=== PATIENT | female | born 1985 | race Caucasian/White ===

== ENCOUNTER 2016-12-01 12:19 | Emergency (ER) | payer MEDICAID ==
[2016-12-01 12:27] VITALS: RESP 18
[2016-12-01] MEDS ORDERED: PHENAZOPYRIDINE HCL 200 MG TAB PO ONE (12:40)
[2016-12-01] MEDS ORDERED: ONDANSETRON 4 MG/2 ML VIAL IVP ONE (12:47)
[2016-12-01] MEDS ORDERED: fentaNYL 100 MCG/2 ML INJ IVP ONE (12:47)
[2016-12-01 12:53] LABS: COLOR YELLOW; LEUKOCYTE ESTERASE,URINE 3+ (NEGATIVE); NITRITE,URINE NEGATIVE (NEGATIVE)
[2016-12-01 13:07] LABS: BACTERIA 1+ /hpf (NONE SEEN); MUCUS TRACE /lpf (NONE-1+); RBC,URINE 50-182 /hpf (0-3); WBC,URINE 50-182 /hpf (0-3)
[2016-12-01] MEDS ORDERED: HYDROmorphONE/DILAUDID 1 MG/ML SYR IVP ONE (13:28)
--- NOTE | 2016-12-01 14:14 | EDPHY ---
H & P Smoking Status: Current every day smoker Time Seen by Provider: 12/01/16 12:31 HPI/ROS: CHIEF COMPLAINT: Dysuria, abdominal pain, flank pain HISTORY OF PRESENT ILLNESS: 31-year-old female presents to the emergency department complaining of dysuria over last 3 or 4 days. She has noticed some urinary frequency as well. Today she noted hematuria. This morning she developed left severe flank pain. Denies radicular symptoms. Denies symptoms in the right low back. She feels nauseous although no vomiting. No diarrhea. No reported fever. No reported trauma. Last menstrual period was over 1 year ago since she is on continuous control and she denies . REVIEW OF SYSTEMS: Constitutional: No fever, no chills. Eyes: No double or blurry vision. ENT: No sore throat. Respiratory: No cough, no shortness of breath. Cardiac: No chest pain. Gastrointestinal: Abdominal and flank pain as above. No vomiting or diarrhea. Genitourinary: Dysuria, frequency with urination. Musculoskeletal: No neck or back pain. Skin: No rashes. Neurological: No headache. (Christy Foley) Past Medical/Surgical History: Last urinary tract infection 6 years ago. (Christy Foley) Social History: Single (Christy Foley) Physical Exam: General Appearance: Alert, no distress.121/77, 36.4 temp Eyes: Pupils equal and round. Extraocular motions are all intact. ENT: Mouth: Mucous membranes moist. Respiratory: No wheezing, rhonchi, or rales, lungs are clear to auscultation. Cardiovascular: Regular rate and rhythm. Gastrointestinal: Abdomen is soft and nontender, no masses, no rebound or guarding, bowel sounds normal. Positive CVA tenderness on the left, none on the right. Neurological: Alert and oriented x 3, cranial nerves II through XII grossly intact Skin: Warm and dry, no rashes. Musculoskeletal: Nontender to palpate along the cervical, thoracic or lumbar spine. Neck is supple. Extremities: Full range of motion and no peripheral edema. Psychiatric: Patient is oriented X 3, there is no agitation. (Christy Foley) Constitutional: Initial Vital Signs Temperature (C) 36.9 C 12/01/16 12:24 Heart Rate 88 12/01/16 12:24 Respiratory Rate 18 12/01/16 12:24 Blood Pressure 121/77 H 12/01/16 12:24 O2 Sat (%) 98 12/01/16 12:24 O2 Delivery Mode Room Air Allergies/Adverse Reactions: No Known Allergies Allergy (Verified 12/02/14 09:02) Home Medications: Medication Instructions Recorded Hydrocodone/APAP 5/325 [[place] 1 each PO Q4-6PRN PRN #14 tab 03/25/14 5/325 (*)] Albuterol [Proventil Inhaler HFA 2 puffs IH Q4 PRN #1 mdi 12/02/14 (*)] Benzonatate [Tessalon Pearles] 200 mg PO BID PRN #20 cap 12/02/14 Codeine/Promethazine [Phenergan W/ 5 ml PO Q4-6PRN PRN #120 ml 12/02/14 Codeine Syrup] Norethindrone-E.estradiol-Iron 1 each PO 12/02/14 [Microgestin Fe 1-20 Tablet] oxyCODONE/APAP 5/325 [Percocet 1 tab PO Q4-6PRN PRN #10 tab 02/25/15 5/325 (*)] Hydrocodone/APAP 5/325 [[place] 1 - 2 tab PO Q4H PRN #10 tab 09/16/16 5/325] Cephalexin [Keflex] 500 mg PO QID #40 cap 12/01/16 Hydrocodone/APAP 5/325 [[place] 1 each PO Q4-6PRN PRN #11 tab 12/01/16 5/325 (*)] Phenazopyridine HCl [Pyridium] 200 mg PO Q8PRN PRN #6 tab 12/01/16 Medical Decision Making - Diagnostics Imaging: CT imaging of the abdomen and pelvis without contrast reveals no evidence of hydronephrosis. No evidence of kidney stone. Normal appendix. This was reported to me by Dr. Coley at 1:41 p.m.. (Christy Foley) ED Course/Re-evaluation: 31-year-old female presents with severe left flank pain and dysuria and hematuria. I explained to the patient that I was very concerned that she could possibly have a concurrent kidney stone. I discussed the pros and cons of radiation exposure associated with CT scan the patient agrees with CT scan to rule out kidney stone. CT scan reveals no evidence of kidney stone or hydronephrosis. Normal appearing appendix. Urinalysis reveals large amount of red blood cells and white blood cells. Urine culture is pending. The patient was given 1 g of IV Rocephin in the emergency department. Patient will call for urine culture results in 48 hours. She will be discharged home with Keflex. I do not think she needs admission to the hospital. She was encouraged to return to the emergency department if she developed fever, vomiting or if she felt worse in any way. (Christy Foley) I did not see this patient while she was in the emergency department. However her care was discussed with the PA while the patient was in the department. I agree with treatment plan and management (Nick Austin) Differential Diagnosis: Including but not limited to urinary tract infection, pyelonephritis, kidney stone, acute appendicitis (Christy Foley) - Data Points Laboratory Results: 12/01/16 12/01/16 12:30 12:30 Urine Color YELLOW Urine Appearance TURBID Urine pH 6.0 (5.0-7.5) Ur Specific Joaquin 1.021 (1.002-1.030) Urine Protein 1+ H (NEGATIVE) Urine Ketones NEGATIVE (NEGATIVE) Urine Blood 3+ H (NEGATIVE) Urine Nitrate NEGATIVE (NEGATIVE) Urine Bilirubin NEGATIVE (NEGATIVE) Urine Urobilinogen NEGATIVE EU EU (0.2-1.0) Ur Leukocyte Esterase 3+ H (NEGATIVE) Urine RBC 50-182 /hpf H /hpf (0-3) Urine WBC 50-182 /hpf H /hpf (0-3) Ur Epithelial Cells TRACE /lpf /lpf (NONE-1+) Urine Bacteria 1+ /hpf H /hpf (NONE SEEN) Urine Mucus TRACE /lpf /lpf (NONE-1+) Ur Culture Indicated? INDICATED H (NI) Urine Glucose NEGATIVE (NEGATIVE) Urine Test NEGATIVE Medications Given: Discontinued Medications Fentanyl (Sublimaze) 50 mcg IVP EDNOW ONE Stop: 12/01/16 12:48 Last Admin: 12/01/16 12:55 Dose: 50 mcg Hydromorphone HCl (Dilaudid) 0.5 mg IVP EDNOW ONE Stop: 12/01/16 13:29 Last Admin: 12/01/16 13:34 Dose: 0.5 mg Ceftriaxone Sodium/Dextrose (Rocephin 1 Gm (Premix)) 50 mls @ 100 mls/hr IV EDNOW ONE PRN Reason: Protocol Stop: 12/01/16 14:14 Last Admin: 12/01/16 14:03 Dose: 50 mls Ondansetron HCl (Zofran) 4 mg IVP EDNOW ONE Stop: 12/01/16 12:48 Last Admin: 12/01/16 12:55 Dose: 4 mg Phenazopyridine HCl (Pyridium) 200 mg PO EDNOW ONE Stop: 12/01/16 12:41 Last Admin: 12/01/16 12:45 Dose: 200 mg Departure - Departure Disposition: Home, Routine, Self-Care Clinical Impression: Acute pyelonephritis Condition: Good Instructions: Urinary Tract Infection in Women (ED), Kidney Infection (ED) Additional Instructions: Keflex 500 mg 4 times daily for 10 days. Pyridium as needed for burning with urination. Return if you develop fever, vomiting, worsening back pain, or if you feel worse in any way. Referrals: Mayra Robertson MD [Medical Doctor] - 1 day, if not improved Prescriptions: Cephalexin [Keflex] 500 mg PO QID #40 cap Hydrocodone/APAP 5/325 [[place] 5/325 (*)] 1 each PO Q4-6PRN PRN #11 tab PRN Reason: Pain, Severe Phenazopyridine HCl [Pyridium] 200 mg PO Q8PRN PRN #6 tab PRN Reason: P.r.n. dysuria
[2016-12-01 14:46] VITALS: BP 99/64; PULSE 61; TEMP 98.4; O2SAT 95
== END 2016-12-01 14:58 | disposition home or self-care (01) ==
DX: N10 Acute pyelonephritis (principal)
CPT/HCPCS: 96365; J0696; J1170; J2405; J3010

== ENCOUNTER 2017-02-18 16:43 | Emergency (ER) | payer MEDICAID ==
[2017-02-18] MEDS ORDERED: KETOROLAC 30 MG/1 ML SDV IM ONE (17:10)
[2017-02-18] MEDS ORDERED: LORazepam 1 MG TAB PO ONE (17:10)
--- NOTE | 2017-02-18 18:23 | EDPHY ---
H & P Stated Complaint: back pain Time Seen by Provider: 02/18/17 17:01 HPI/ROS: CHIEF COMPLAINT: Back strain HISTORY OF PRESENT ILLNESS: The patient presents to the ED with complaints of an acute right trapezius muscle sprain that began earlier today. The patient woke up with tightness and limited range of motion in her neck secondary to the pain. She denies recent fall or trauma. Patient has no complaints of fever, history of IV drug use, numbness, weakness or history of spinal injury. Patient did use a anti-inflammatory earlier today without improvement of her symptoms. The patient denies any bowel or bladder dysfunction. She has no lower extremity complaints or upper extremity complaints. REVIEW OF SYSTEMS: A comprehensive 10 point review of systems is otherwise negative aside from elements mentioned in the history of present illness. Source: Patient Exam Limitations: No limitations - Personal History LMP (Females 10-55): Irregular Current Tetanus/Diphtheria Vaccine: No Current Tetanus Diphtheria and Acellular Pertussis (TDAP): No - Medical/Surgical History Hx Asthma: No Hx Chronic Respiratory Disease: No Hx Diabetes: No Hx Cardiac Disease: No Hx Renal Disease: No Hx Cirrhosis: No Hx Alcoholism: No Hx HIV/AIDS: No Hx Splenectomy or Spleen Trauma: No Other PMH: PMH- POLYCYSTIC OVARY DISEASE. PSH- CYST REMOVAL FROM both OVARIES - Social History Smoking Status: Current every day smoker - Physical Exam Exam: General Appearance: Alert, no distress Eyes: Pupils equal and round no pallor or injection Neck: Tenderness to palpation noted in the right trapezius muscle consistent with myofascial strain ENT, Mouth: Mucous membranes moist Respiratory: There are no retractions, lungs are clear to auscultation Cardiovascular: Regular rate and rhythm Gastrointestinal: Abdomen is soft and nontender, no masses, bowel sounds normal Neurological: A&O, normal motor function, normal sensory exam, normal cranial nerves Skin: Warm and dry, no rashes Musculoskeletal: Neck is supple nontender Extremities: symmetrical, full range of motion Psychiatric: Patient is oriented X 3, there is no agitation Constitutional: Initial Vital Signs Temperature (C) 36.8 C 02/18/17 16:45 Heart Rate 84 02/18/17 16:45 Respiratory Rate 18 02/18/17 16:45 O2 Sat (%) 96 02/18/17 16:45 O2 Delivery Mode Room Air Allergies/Adverse Reactions: No Known Allergies Allergy (Verified 12/02/14 09:02) Medical Decision Making ED Course/Re-evaluation: The patient presents to the ED with myofascial strain involving her right trapezius muscle. The patient received 30 mg dose of intramuscular Toradol and also was given 1 mg of oral Ativan. The patient is noted to be neurologically intact. There is nothing to suggest an acute neurologic deficit or evidence of spinal cord compromise. The patient will be discharged home with customary aftercare instructions. She is given a prescription for Ativan and advised to take a 600 mg dose of ibuprofen. The patient is discharged home with customary aftercare instructions and return precautions. Differential Diagnosis: Differential diagnosis considered includes myofascial strain, cervical disc herniation, zoster - Data Points Medications Given: Discontinued Medications Ketorolac Tromethamine (Toradol) 30 mg IM EDNOW ONE Stop: 02/18/17 17:11 Last Admin: 02/18/17 17:19 Dose: 30 mg Lorazepam (Ativan) 1 mg PO EDNOW ONE Stop: 02/18/17 17:11 Last Admin: 02/18/17 17:20 Dose: 1 mg Departure - Departure Disposition: Home, Routine, Self-Care Clinical Impression: Trapezius strain Condition: Good Instructions: Musculoskeletal Pain (ED) Additional Instructions: 1. Take Ibuprofen or Motrin 600 mg by mouth three times a day. 2. Ativan as needed for muscle relaxation. 3. Please return to the fever, markedly worsening pain or other concerns.
[2017-02-18] MEDS ORDERED: LORAZEPAM 1 MG PREPACK#4 BTL TAKEHOME ONE ×2 (18:41→18:48)
[2017-02-18 18:48] VITALS: BP 121/67; PULSE 81; RESP 16; TEMP 98.1; O2SAT 97
== END 2017-02-18 18:47 | disposition home or self-care (01) ==
DX: S46.911A Strain of unspecified muscle, fascia and tendon at shoulder and upper arm level, right arm, initial encounter (principal); F17.200 Nicotine dependence, unspecified, uncomplicated; X58.XXXA Exposure to other specified factors, initial encounter
CPT/HCPCS: J1885

== ENCOUNTER 2017-04-01 12:06 | Emergency (ER) | payer MEDICAID ==
[2017-04-01 12:15] VITALS: RESP 18; O2SAT 94
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
[2017-04-01 14:01] VITALS: BP 116/91; PULSE 92; TEMP 98.2
== END 2017-04-01 14:00 | disposition home or self-care (01) ==
DX: S89.91XA Unspecified injury of right lower leg, initial encounter (principal); S60.221A Contusion of right hand, initial encounter; F17.200 Nicotine dependence, unspecified, uncomplicated; W01.198A Fall on same level from slipping, tripping and stumbling with subsequent striking against other object, initial encounter; Y93.02 Activity, running

== ENCOUNTER 2017-06-13 03:35 | Emergency (ER) | payer MEDICAID ==
[2017-06-13 03:41] VITALS: TEMP 99; O2SAT 94
--- NOTE | 2017-06-13 04:03 | EDPHY ---
H & P Stated Complaint: cut on L hand Time Seen by Provider: 06/13/17 03:56 HPI/ROS: CHIEF COMPLAINT: Laceration HISTORY OF PRESENT ILLNESS: The patient is a 32-year-old female who comes to the emergency department complaining of a laceration to her left hand. She fell and hit it on the cement. She has a very small puncture type wound to the palm of her left hand. She also has some bruising to her right hand but is not worried about it. She states that she had been drinking. She denies head neck or back injury. REVIEW OF SYSTEMS: Constitutional: denies: chills, fever, recent illness, recent injury EENTM: denies: blurred vision, double vision, nose congestion Respiratory: denies: cough, shortness of breath Cardiac: denies: chest pain, irregular heart rate, lightheadedness, palpitations Gastrointestinal/Abdominal: denies: abdominal pain, diarrhea, nausea, vomiting, blood streaked stools Genitourinary: denies: dysuria, frequency, hematuria, pain Musculoskeletal: See HPI Skin: denies: lesions, rash, jaundice, bruising Neurological: denies: headache, numbness, paresthesia, tingling, dizziness, weakness Hematologic/Lymphatic: denies: blood clots, easy bleeding, easy bruising Immunologic/allergic: denies: HIV/AIDS, transplant EXAM: GENERAL: Well-appearing, well-nourished and in no acute distress. HEAD: Atraumatic, normocephalic. EYES: Pupils equal round and reactive to light, extraocular movements intact, sclera anicteric, conjunctiva are normal. ENT: TMs normal, nares patent, oropharynx clear without exudates. Moist mucous membranes. NECK: Normal range of motion, supple without lymphadenopathy or JVD. LUNGS: Breath sounds clear to auscultation bilaterally and equal. No wheezes rales or rhonchi. HEART: Regular rate and rhythm without murmurs, rubs or gallops. ABDOMEN: Soft, nontender, normoactive bowel sounds. No guarding, no rebound. No masses appreciated. BACK: No CVA tenderness, no spinal tenderness, step-offs or deformities EXTREMITIES: Normal range of motion, no pitting or edema. No clubbing or cyanosis. NEUROLOGICAL: Cranial nerves II through XII grossly intact. Normal speech, normal gait. 5/5 strength, normal movement in all extremities, normal sensation PSYCH: Normal mood, normal affect. SKIN: See diagram Source: Patient Exam Limitations: No limitations - Personal History LMP (Females 10-55): Over 28 Days Ago Current Tetanus/Diphtheria Vaccine: Yes - Medical/Surgical History Hx Asthma: No Hx Chronic Respiratory Disease: No Hx Diabetes: No Hx Cardiac Disease: No Hx Renal Disease: No Hx Cirrhosis: No Hx Alcoholism: No Hx HIV/AIDS: No Hx Splenectomy or Spleen Trauma: No Other PMH: PMH- POLYCYSTIC OVARY DISEASE. PSH- CYST REMOVAL FROM both OVARIES - Family History Significant Family History: No pertinent family hx - Social History Smoking Status: Current every day smoker Alcohol Use: Occasionally Drug Use: None Constitutional: Initial Vital Signs Temperature (C) 37.2 C 06/13/17 03:38 Heart Rate 79 06/13/17 03:38 Respiratory Rate 14 06/13/17 03:38 Blood Pressure 108/63 06/13/17 03:38 O2 Sat (%) 94 06/13/17 03:38 O2 Delivery Mode Room Air Allergies/Adverse Reactions: No Known Allergies Allergy (Verified 04/01/17 12:11) Home Medications: Medication Instructions Recorded Microgestin 06/13/17 ED Images - Extremities Hands Back Left/Right: 1 - Bruising. No tenderness. Declines x-ray imaging Hands Front Left/Right: 1 - 0.5 cm laceration. Fatty tissue preventing closure. No visible foreign body. Normal range of motion. Normal sensation distally. Normal capillary refill. No sign of tendon nerve or vascular injury. Medical Decision Making Procedures: Procedure: Laceration repair. Verbal consent was obtained from the patient. The 0.5 cm hand laceration was anesthetized with 0.5% bupivacaine with epinephrine locally infiltrated. The wound was irrigated copiously according to protocol, draped and explored to its base. It was approximately 1/2 cm deep. There were no deep structures involved. No tendon, nerve, or vascular injury was identified when explored through full range of motion. No foreign body was identified. The wound was repaired with 5.0 Prolene, 2 sutures, interrupted. The wound repair was simple without wound margin revisement or multiple flap alignment. The procedure was performed by myself. A dressing was then placed with sterile gauze and bacitracin. ED Course/Re-evaluation: Patient tolerated the procedure well. We discussed suture care and removal. She is happy with this. Differential Diagnosis: Partial list of the Differential diagnosis considered include but were not limited to; laceration, abrasion, foreign body and although unlikely based on the history and physical exam, I also considered puncture wound, nerve injury, vascular injury, tendon injury. I discussed these differential diagnoses and the plan with the patient as well as the usual and expected course. The patient understands that the diagnosis is provisional and that in medicine we are not always correct and that further workup is often warranted. Usual and customary warnings were given. All of the patient's questions were answered. The patient was instructed to return to the emergency department should the symptoms at all worsen or return, otherwise to followup with the physician as we discussed. Departure - Departure Disposition: Home, Routine, Self-Care Clinical Impression: Laceration Condition: Fair Instructions: Care For Your Stitches (ED), Laceration (ED) Additional Instructions: Have your stitches removed in 7 days Referrals: Lisa Miller MD [Primary Care Provider] - As per Instructions
[2017-06-13 04:23] VITALS: BP 142/84; PULSE 80; RESP 16
== END 2017-06-13 04:21 | disposition home or self-care (01) ==
PROC: 0HQGXZZ Repair Left Hand Skin, External Approach (ICD-10-PCS; principal; 2017-06-13)
DX: S61.412A Laceration without foreign body of left hand, initial encounter (principal); W01.198A Fall on same level from slipping, tripping and stumbling with subsequent striking against other object, initial encounter; Y99.8 Other external cause status; F17.200 Nicotine dependence, unspecified, uncomplicated

== ENCOUNTER 2017-10-04 16:33 | Emergency (ER) | payer SELFPAY ==
[2017-10-04 16:39] VITALS: BP 129/96; PULSE 91; RESP 16; TEMP 98.4; O2SAT 96
--- NOTE | 2017-10-04 16:41 | EDPHY ---
H & P Stated Complaint: blood in stool Time Seen by Provider: 10/04/17 16:41 - Personal History LMP (Females 10-55): Extended Cycle BCP/Inj Current Tetanus/Diphtheria Vaccine: Yes Current Tetanus Diphtheria and Acellular Pertussis (TDAP): Yes - Medical/Surgical History Hx Asthma: No Hx Chronic Respiratory Disease: No Hx Diabetes: No Hx Cardiac Disease: No Hx Renal Disease: No Hx Cirrhosis: No Hx Alcoholism: No Hx HIV/AIDS: No Hx Splenectomy or Spleen Trauma: No Other PMH: PMH- POLYCYSTIC OVARY DISEASE. PSH- CYST REMOVAL FROM both OVARIES, tonsilectomy - Social History Smoking Status: Current every day smoker Constitutional: Initial Vital Signs Temperature (C) 36.9 C 10/04/17 16:37 Heart Rate 91 10/04/17 16:37 Respiratory Rate 16 10/04/17 16:37 Blood Pressure 129/96 H 10/04/17 16:37 O2 Sat (%) 96 10/04/17 16:37 O2 Delivery Mode Room Air Allergies/Adverse Reactions: No Known Allergies Allergy (Verified 10/04/17 16:36) Home Medications: Medication Instructions Recorded Microgestin 06/13/17 Medical Decision Making ED Course/Re-evaluation: CHIEF COMPLAINT: Blood in stool. HISTORY OF PRESENT ILLNESS: This patient is a 32 y/o female complaining of three episodes of bloody stool yesterday. She had three separate bowel movements with that looked as if "one side was painted red" with bright red blood. She denies any rectal pain. Today, she has not had a bowel movement, and endorses a bloating sensation. She states her mother has had similar symptoms and was diagnosed with internal hemorrhoids. She denies vomiting, diarrhea, abdominal pain, weakness, or other associated symptoms. REVIEW OF SYSTEMS: A 10 point review of systems was performed and is negative with the exception of the elements mentioned in the history of present illness. PHYSICAL EXAM: HR, BP, O2 Sat, RR. Temp noted General Appearance: Alert, well hydrated, appropriate, and non-toxic appearing. Head: Atraumatic without scalp tenderness or obvious injury Eyes: Pupils equal, round, reactive to light and accommodation, EOMI, no trauma , no injection. Ears: Clear bilaterally, no perforation, normal landmarks Nose: Atraumatic, no rhinorrhea, clear. Throat: There is no erythema or exudates, no lesions, normal tonsils, mucus membranes moist. Neck: Supple, nontender, no lymphadenopathy. Respiratory: No retractions, no distress, no wheezes, and no accessory muscle use. Lungs are clear to auscultation bilaterally. Cardiovascular: Regular rate and rhythm, no murmurs, rubs, or gallops. Bilateral carotid, radial, dorsalis pedis, and posterior tibial pulses intact. Good capillary refill all extremities. Gastrointestinal: Abdomen is soft, nontender, non-distended, no masses, no rebound, no guarding, no peritoneal signs. Musculoskeletal: Normal active ROM of all extremities, atraumatic. Neurological: Alert, appropriate, and interactive. Nonfocal neuro exam. Skin: No rashes, good turgor, no nodules on palpation. Past medical history: Polycystic ovary disease Past surgical history: Tonsillectomy Family history: Noncontributory. Social history: Originally from [place]. Current tobacco use. Lives in [place]. DIFFERENTIAL DIAGNOSIS: The differential diagnosis for the patient's lower GI bleeding included but was not limited to diverticulosis, tumor, AVM, hemorrhoid, and upper GI Bleed. MEDICAL DECISION MAKING: This patient is a 32 year old female presenting following painless, one-sided bright red rectal bleeding yesterday, now resolved. Her symptoms are consistent with internal hemorrhoids. She is relieved following this discussion. Plan to discharge home in good condition. She will obtain [id number] topical hemorrhoid treatments. Follow up and return precautions discussed. She is comfortable with this plan. Departure - Departure Disposition: Home, Routine, Self-Care Clinical Impression: Hemorrhoid Qualifiers: Hemorrhoid type: other Qualified Code(s): K64.8 - Other hemorrhoids Condition: Good Instructions: Hemorrhoids (ED) Additional Instructions: 1. Follow up with your primary care provider for further evaluation. Follow up with Dr. Garcia, general surgeon, for symptoms which are persistent or recurrent. 2. You may use topical over the counter treatments such as Preparation H or Anusol-HC for relief of symptoms. 3. Return to the emergency department for fever, severe abdominal pain, or other worsening of condition. Referrals: Lisa Miller MD [Primary Care Provider] - As per Instructions Leobardo Garcia MD [Medical Doctor] - As per Instructions Report Scribed for: Farzad Farrell Report Scribed by: Diana Navarro Date of Report: 10/04/17 Time of Report: 18:36
== END 2017-10-04 17:17 | disposition home or self-care (01) ==
DX: K64.8 Other hemorrhoids (principal); F17.200 Nicotine dependence, unspecified, uncomplicated

== ENCOUNTER 2018-11-09 18:20 | Emergency (ER) | payer MEDICAID, OTHER ==
[2018-11-09 19:09] VITALS: BP 123/78
--- NOTE | 2018-11-09 19:37 | EDPHY ---
HPI/HX/ROS/PE/MDM Narrative: CHIEF COMPLAINT: Right knee injury HISTORY OF PRESENT ILLNESS: The patient is a 33 y/o female with a history of a right knee sprain complaining of right knee pain secondary to falling 2 days ago. The patient was going down a flight of stairs when she tripped and twisted her knee. She describes a valgus stress on her lower extremity. Since the fall she has had difficulty bearing weight, but is able to "hobble and maneuver". It does feel like the knee is "going to give out". Reports significant pain on the medial aspect of the knee. No fever, chills, chest pain, shortness of breath, palpitations, vomiting, diarrhea, urinary complaints, headache, lightheadedness. REVIEW OF SYSTEMS: Aside from elements discussed in the HPI, a comprehensive 10-point review of systems was reviewed and is negative. PAST MEDICAL HISTORY: Right knee sprain, PCOS, tonsillectomy SOCIAL HISTORY: Lives in [place], single, employed VITAL SIGNS: Reviewed by me. GEN: Pleasant, denies pain except in her knee. EXTREMITIES: Diffusely swollen right knee, held in slight flexion, with significant tenderness along the medial compartment. Pain with valgus stress. The extensor mechanism is intact, but she has limitations with extension. Mild tenderness across the tibial plateau and anterior tibia. Suprapatellar joint effusion present. Negative anterior drawer, although the examination is somewhat limited due to the patient's swelling and discomfort. Pulses intact. NEURO: Alert and oriented, grossly nonfocal. SKIN: Warm and dry, no rash. PSYCHIATRIC: Normal mentation, no agitation. Portions of this note were transcribed by a rn medical inpatient services. I personally performed a history, physical exam, medical decision making, and confirmed accuracy of information the transcribed note. ED Course: The patient is a 33 y/o female with a history of a right knee sprain complaining of right knee pain secondary to falling down some stairs 2 days ago. On exam she has a diffusely swollen right knee with significant tenderness along the medial compartment. She also has pain with valgus stress. The extensor mechanism is intact, but she has limitations with extension. She also has mild tenderness across the tibial plateau and anterior tibia. Right knee x- ray ordered; 30mg IM Toradol administered. 1939: I reviewed patient's x-ray and do not appreciate any osseous injuries; radiologist reading still pending. 194: Reassessed patient and discussed imaging findings. I have discussed wearing a knee immobilizer and using crutches. I have also discussed follow up with an orthopedic surgeon. Return precautions provided; patient is comfortable with this plan. MDM: Differential diagnosis for the patient's injury was considered including but not limited to medial collateral ligament sprain, medial meniscus tear, knee sprain, effusion, contusion, fracture, or dislocation. - Data Points Imaging Results: Imaging Impressions Knee X-Ray 11/09/18 19:19 Impression: 1. Mild to moderate effusion suprapatellar bursa. 2. No acute osseous abnormality seen right knee. If symptoms persist, consider MRI of the right knee at some point to evaluate for possible meniscal or ligamentous type injuries. Imaging: I viewed and interpreted images myself Medications Given: Discontinued Medications Hydrocodone Bitart/Acetaminophen ([place] 5/325mg Prepack#6) 1 btl TAKEHOME EDNOW ONE Stop: 11/09/18 19:50 Last Admin: 11/09/18 19:56 Dose: 1 btl Ketorolac Tromethamine (Toradol) 30 mg IM EDNOW ONE Stop: 11/09/18 19:50 Last Admin: 11/09/18 19:56 Dose: 30 mg General Time Seen by Provider: 11/09/18 19:35 Initial Vital Signs: Initial Vital Signs Temperature (C) 36.8 C 11/09/18 19:05 Heart Rate 84 11/09/18 19:05 Respiratory Rate 16 11/09/18 19:05 Blood Pressure 123/78 H 11/09/18 19:05 O2 Sat (%) 96 11/09/18 19:05 Allergies/Adverse Reactions: No Known Allergies Allergy (Verified 11/09/18 19:05) Home Medications: Medication Instructions Recorded Microgestin 06/13/17 Hydrocodone/APAP 5/325 [[place] 1 - 2 tab PO Q6H PRN #14 tab 11/09/18 5/325 (*)] Departure - Departure Disposition: Home, Routine, Self-Care Clinical Impression: Knee injury Qualifiers: Encounter type: initial encounter Laterality: right Qualified Code(s): S89.91XA - Unspecified injury of right lower leg, initial encounter Condition: Good Instructions: Knee Pain (ED), Knee Immobilizer (ED) Additional Instructions: Rest, ice, elevation. Take hydrocodone as prescribed for severe pain. Follow up with an orthopedic surgeon within one week if pain persists. Make sure they know that this is an emergency department follow up visit. You will also most likely need an MRI after seeing the orthopedic surgeon. Return to the emergency department for worsening pain, swelling, numbness, weakness or other concerns. Wear knee immobilizer, weight bear as tolerated. Referrals: Justin Gavin MD [Medical Doctor] - As per Instructions Prescriptions: Hydrocodone/APAP 5/325 [[place] 5/325 (*)] 1 - 2 tab PO Q6H PRN #14 tab PRN Reason: Pain, Breakthrough Report Scribed for: Gina Frias Report Scribed by: Georgia Yang Date of Report: 11/09/18 Time of Report: 19:37
[2018-11-09] MEDS ORDERED: KETOROLAC 30 MG/1 ML SDV IM ONE (19:49)
[2018-11-09] MEDS ORDERED: HYDROCOD/APAP 5/325 PREPACK#6 BTL TAKEHOME ONE (19:49)
== END 2018-11-09 20:22 | disposition home or self-care (01) ==
DX: S89.91XD Unspecified injury of right lower leg, subsequent encounter (principal)
CPT/HCPCS: J1885

== ENCOUNTER 2019-03-05 09:09 | Day surgery (SDC) | payer MEDICAID ==
[2019-03-05] MEDS ORDERED: LIDOCAINE 1% 2 ML INJ ID PRN (09:11)
[2019-03-05] MEDS ORDERED: LR 1,000 ML IV ONE (09:11)
[2019-03-05] MEDS ORDERED: ACETAMINOPHEN 500 MG TAB PO ONE (09:32)
[2019-03-05] MEDS ORDERED: ceFAZolin 2 GM/DEXTROSE 100 ML IV ONE (09:32)
--- NOTE | 2019-03-05 09:33 | PDHPUP ---
History & Physical Update H&P update statement: This history and physical update is based on an assessment of the patient which was completed after admission or registration (within 24 hours), but prior to the surgery/procedure. H&P update: H&P reviewed & patient examined, no change in patient's condition since H&P completed
[2019-03-05] MEDS ORDERED: MIDAZOLAM 2 MG/2 ML VIAL IVP ONE (09:47)
--- NOTE | 2019-03-05 09:48 | PDANEPAE ---
ANE Past Medical History - Cardiovascular History Hx Hypertension: No Hx Arrhythmias: No Hx Chest Pain: No Hx Coronary Artery / Peripheral Vascular Disease: No Hx CHF / Valvular Disease: No Hx Palpitations: No - Pulmonary History Hx COPD: No Hx Asthma/Reactive Airway Disease: No Hx Recent Upper Respiratory Infection: No Hx Oxygen in Use at Home: No Hx Sleep Apnea: No Sleep Apnea Screening Result - Last Documented: Negative - Neurologic History Hx Cerebrovascular Accident: No Hx Seizures: No Hx Dementia: No - Endocrine History Hx Diabetes: No - Renal History Hx Renal Disorders: No - Liver History Hx Hepatic Disorders: No - Neurological & Psychiatric Hx Hx Neurological and Psychiatric Disorders: No - Cancer History Hx Cancer: Yes Cancer History Comment: Abnormal paps s/p colposcopy x2 - Congenital Disorder History Hx Congenital Disorders: No - GI History Hx Gastrointestinal Disorders: No - Other Health History Other Health History: PCOS. R knee sprain, R knee injury - Chronic Pain History Chronic Pain: No - Surgical History Prior Surgeries: Tonsillectomy age 8. Ovarian cyst removal at age 22. [place] tooth extraction ANE Review of Systems Review of Systems: - Exercise capacity METS (RN): 4 METS ANE Patient History - Allergies Allergies/Adverse Reactions: No Known Allergies Allergy (Verified 03/05/19 09:22) - Home Medications Home Medications: Microgestin 06/13/17 [Last Taken 03/04/19] - NPO status NPO Since - Liquids (Date): 03/05/19 NPO Since - Liquids (Time): 07:30 NPO Since - Solids (Date): 03/04/19 NPO Since - Solids (Time): 20:00 - Smoking Hx Smoking Status: Light smoker - Family Anes Hx Family Hx Anesthesia Complications: None. ANE Labs/Vital Signs - Vital Signs Blood Pressure: 111/76 Heart Rate: 95 Respiratory Rate: 16 O2 Sat (%): 97 Height: 157.48 cm Weight: 63.503 kg ANE Physical Exam - Airway Neck exam: FROM Mallampati Score: Class 2 Mouth exam: normal dental/mouth exam - Pulmonary Pulmonary: no respiratory distress - Cardiovascular Cardiovascular: regular rate and rhythym - ASA Status ASA Status: III ANE Anesthesia Plan Anesthesia Plan: GA w LMA
[2019-03-05] MEDS ORDERED: BUPIVACAINE/EPI 0.5% 30 ML SDV ONE (09:52)
[2019-03-05] MEDS ORDERED: fentaNYL 100 MCG/2 ML INJ ONE ×4 (09:57→12:34)
[2019-03-05] MEDS ORDERED: PROPOFOL 200 MG/20 ML VIAL ONE (09:57)
[2019-03-05] MEDS ORDERED: KETOROLAC 30 MG/1 ML SDV ONE (09:58)
[2019-03-05] MEDS ORDERED: LIDOCAINE 2% 100 MG/5 ML SYR ONE (09:58)
[2019-03-05] MEDS ORDERED: DEXAMETHASONE 4 MG/ML VIAL ONE (09:58)
[2019-03-05] MEDS ORDERED: ROCURONIUM 50 MG/5 ML VIAL ONE (09:58)
[2019-03-05] MEDS ORDERED: GLYCOPYRROLATE 0.2 MG/1 ML VIAL ONE ×2 (12:15)
[2019-03-05] MEDS ORDERED: ONDANSETRON 4 MG/2 ML VIAL IVP PRN ×2 (12:25→13:28)
[2019-03-05] MEDS ORDERED: ONDANSETRON DISINTEGRATING 4 MG TAB PO PRN (12:25)
[2019-03-05] MEDS ORDERED: OXYCODONE/APAP 5/325 TAB PO PRN (12:25)
--- NOTE | 2019-03-05 12:33 | POSTANESTH ---
Post Anesthetic Evaluation Cardiovascular Status: Similar to Pre-Op Cond Respiratory Status: Similar to Pre-op Cond. Level of Consciousness/Mental Status: Can Participate in Eval, Mildly Sleepy, Arousable Pain Control: Adequate, Prn Tx Ordered Nausea/Vomiting Control: Adequate, Prn Tx Ordered Complications Possibly Related to Anesthesia: None Noted
[2019-03-05] MEDS ORDERED: HYDROmorphONE/DILAUDID 1 MG/ML INJ ONE (12:34)
[2019-03-05] MEDS ORDERED: MEPERIDINE 25 MG/0.5 ML AMP ONE (12:34)
[2019-03-05] MEDS: fentaNYL 100 MCG/2 ML INJ IVP PRN ×2 (12:35→13:06)
[2019-03-05] MEDS: HYDROmorphONE/DILAUDID 1 MG/ML INJ IVP PRN ×2 (12:40→13:32)
[2019-03-05] MEDS ORDERED: PROMETHAZINE HCL 25 MG/ML INJ ONE (13:15)
--- NOTE | 2019-03-05 13:15 | GOP ---
[f rep st] OPERATIVE REPORT DATE OF OPERATION: 03/05/2019 SURGEON: Justin Gavin MD PHARMACY CLINICAL COORDINATOR: Mikey. ANESTHESIA: General. PREOPERATIVE DIAGNOSIS: 1. Right knee medial meniscus tear. 2. Right knee anterior cruciate ligament tear. POSTOPERATIVE DIAGNOSIS: 1. Right knee medial meniscus tear. 2. Right knee anterior cruciate ligament tear. PROCEDURE PERFORMED: 1. Arthroscopic-assisted reconstruction right anterior cruciate ligament using 4-strand semitendinos us autograft. 2. Arthroscopic medial meniscus repair. FINDINGS: The patient had a complete tear of the ACL off the femur. Lateral meniscus was intact. T he medial meniscus had a peripheral bucket-handle tear. The articular surfaces were free of degenera tive change. The patella tracked well. Our attention was directed to the ACL stump. This was debrided using a 4-0 resector shaver. Medial meniscus tear was probed. The tear was noted. Our graft was harvested through an anterior medial in cision. It was carried through dermal subcutaneous tissues. The sartorius expansion was split longi tudinal in line with its fibers. The semitendinosus tendon was reflected off the periosteal attachme nts. It was reefed with a #2 Parcus suture. The end of the suture was brought through a tendon stri pper. The tendon stripper was passed up through the posterior thigh and the tendon was harvested. T he tendon tract was infiltrated with Marcaine solution. The tendon was put on back table. My assist ant removed excess muscle tissue. He cut the tendon into 2 equal lengths. Each end of the tendon wa s then looped to create a 4-strand graft. Each end of the tendon was reefed with #2 Parcus suture. The scope was inserted. Notchplasty was performed with a 5 mm bur. The hbqw-lab-whu position was cl eared off with a curette. Our medial meniscus was then addressed. Using the T-Fix system from [employer], a suture was placed posteriorly in the cephalad portion of the flap. A 2nd suture anchor was the n placed more medial to this on the undersurface of the meniscus. We tethered the meniscus and felt that it was stable. The ACL tunnel was then drilled with a 9 mm tunnel drill. The femoral tunnel wa s then drilled using the [employer] tunneled drill. The flexible drills were utilized. The starting ho le was made, the isometric point. The guide was placed in the [id number] position to ascertain the starting point. We subsequently drilled out through the lateral femoral condyle with a Nitinol dril l. We measured off the drill. The tunnel length was measured 42 mm. The tunnel depth was drilled a t 15 mm in the femur. The lateral cortex was overdrilled, a 5 mm tunnel drill. The insertion length was measured on the graft and marked at 15 mm. The loops of the graft were passed through a GFS anc hor from [employer]. The tunnel length was measured from the tip of the button at 42 mm. The leading lake tures of the graft were then passed through the passing suture, brought through the tibial and femora l tunnels. The graft was pulled up into position. It was rotated 90 degrees on the lateral femoral cortex, as seen under fluoroscopy. The graft was then tensioned gradually distally and the graft was then pulled up into the tunnel approximately 15-20 mm. The graft was then secured distally over 6.5 cancellous screw and washer that was drilled through a previously drilled 3.2 drill hole, tapped wit h a 6.5 tap. Excellent fixation was obtained. There was no graft impingement with the knee put thro ugh flexion-extension arc of motion. There is no elongation or shortening of the graft with range of motion. Leading and trailing sutures were cut. The sartorius expansion was closed with 2-0 Vicryl suture, followed by closure of subcutaneous tissue with 2-0 Vicryl suture, followed by closure of the dermis with 3-0 Ethilon. Sterile compression dressing was applied. The patient tolerated procedure well, was transferred back to recovery in stable condition. No operative complications. DESCRIPTION OF PROCEDURE: The patient was taken to the operating room, administered general anesthes ia, placed in supine position. The right lower extremity was positioned in a left leg negron and pre pped and draped in normal sterile fashion. Arthroscope was inserted through an anterolateral incisio n. Superolateral incision was made followed by insertion of the outflow cannula. Anteromedial incis ion made followed by insertion of the hook probe. Systematic exploration of the joint was performed. COMPLICATIONS: None. /[id number]/MODL
[2019-03-05] MEDS ORDERED: PROMETHAZINE HCL 25 MG/ML INJ IVP PRN (13:28)
[2019-03-05] MEDS ORDERED: ALBUTEROL 3 ML DEYVIAL IH PRN (13:28)
[2019-03-05] MEDS ORDERED: NALOXONE HCL 0.4 MG/ML INJ IVP PRN (13:28)
[2019-03-05] MEDS ORDERED: MEPERIDINE 25 MG/0.5 ML AMP IVP PRN (13:28)
[2019-03-05] MEDS ORDERED: DIAZEPAM 10 MG/2 ML SYR IVP PRN (13:28)
[2019-03-05] MEDS ORDERED: HYDROCODONE/APAP 5/325 TAB PO PRN (13:28)
[2019-03-05 18:29] VITALS: BP 115/64
== END 2019-03-05 15:26 | disposition home or self-care (01) ==
LOC: FSGY 09:09
PROVIDERS: ATTEND Orthopaedic Surgery Sports Medicine
DX: S83.511A Sprain of anterior cruciate ligament of right knee, initial encounter (principal); S83.221A Peripheral tear of medial meniscus, current injury, right knee, initial encounter; W01.0XXA Fall on same level from slipping, tripping and stumbling without subsequent striking against object, initial encounter
CPT/HCPCS: C1713; J0690; J1100; J1170; J1885; J2001; J2175; J2250; J2550; J2704; J3010; L1832